=== PATIENT | male | born 1955 | race Caucasian/White ===

== ENCOUNTER 2016-08-30 12:07 | Day surgery (SDC) | payer OTHER ==
[~2016-08-30 12:07] MED LIST: REGADENOSON 0.1 MG DOSE IV ONE
[2016-08-30] MEDS ORDERED: IV START KIT ONE (12:29)
[2016-08-30] MEDS ORDERED: LACTATED RINGERS 1,000 ML ONE (12:29)
[2016-08-30] MEDS ORDERED: LIDOCAINE 1% 2 ML VIAL ID PRN (12:41)
[2016-08-30] MEDS ORDERED: LACTATED RINGERS 1,000 ML IV SCH (12:41)
[2016-08-30] MEDS ORDERED: ONDANSETRON 4 MG/2ML 2 ML VIAL IV PRN (12:41)
[2016-08-30] MEDS ORDERED: PROPOFOL 40 ML IV ONE (13:34)
== END 2016-08-30 15:12 | disposition home or self-care (01) ==
LOC: SDC 12:07
PROVIDERS: ATTEND Surgery
PROC: 0DJD8ZZ Inspection of Lower Intestinal Tract, Via Natural or Artificial Opening Endoscopic (ICD-10-PCS; principal; 2016-08-30)
DX: Z12.11 Encounter for screening for malignant neoplasm of colon (principal); J45.909 Unspecified asthma, uncomplicated; I10 Essential (primary) hypertension; E03.9 Hypothyroidism, unspecified; I25.10 Atherosclerotic heart disease of native coronary artery without angina pectoris; M19.90 Unspecified osteoarthritis, unspecified site; R51 Headache
CPT/HCPCS: 45378; J7120